=== PATIENT | male | born 1990 | race Two or more races ===

== ENCOUNTER 2023-11-16 02:02 | Inpatient (IN) | payer MEDICAID, OTHER ==
[~2023-11-16] VITALS: Ht 167.6 cm; Wt 76.8 kg
[2023-11-16] MEDS ORDERED: ceFAZolin 2 GM/D5W50ml 50 ML IV ONE (02:15)
[2023-11-16] MEDS: TETANUS-DIPTH-ACEL PERTUSSIS 0.5ML SYR Tdap IM ONE (02:22)
[2023-11-16] MEDS: MORPHINE SULFATE 4 MG/ML SYR/VIAL IV ONE (02:23)
[2023-11-16] MEDS: SODIUM CHLORIDE 0.9% 1,000 ML IV ONE (02:24)
[2023-11-16] MEDS: ONDANSETRON HCL 4 MG/2 ML VIAL IV ONE (02:24)
[2023-11-16] MEDS: IOHEXOL 350 MG/ML 100ML IJ ONE (02:29)
[2023-11-16 02:43] LABS: Basophils # (auto) 0.1 10 ^3/uL (0-0.2); Basophils % (auto) 0.4 % (0.0-2.0); Eosinophils # (auto) 0.1 10 ^3/uL (0-0.8); Eosinophils % (auto) 0.6 % (0.0-7.0); Hematocrit 39.6 % (41.0-53.0); Hemoglobin 13.5 g/dL (13.5-17.5); Lymphocytes % (auto) 25.6 % (10.0-50.0); Mean Corpuscular Hgb Conc. 34.1 g/dL (32.0-36.0); Mean Corpuscular Volume 82.1 fL (80.0-100.0); Monocytes # (auto) 1.2 10 ^3/uL (0-1.3); Monocytes % (auto) 7.9 % (0.0-12.0); Neutrophils # (auto) 10.3 10 ^3/uL (1.6-8.6); Neutrophils % (auto) 65.5 % (37.0-80.0); Nucleated Red Blood Cells % 0.1 %; Red Blood Cells 4.83 10^6/uL (4.5-5.90); Red Cell Distribution Width 15.6 % (11.8-14.3); White Blood Cell 15.7 10^3/uL (4.4-10.8)
[2023-11-16 02:46] LABS: Chloride 100 mmol/L (98-107); Potassium 3.4 mmol/L (3.5-5.1); Sodium 135 mmol/L (136-145)
[2023-11-16 02:47] LABS: Anion Gap 18 (5-15); Calcium 8.8 mg/dL (8.7-10.4); Carbon Dioxide 17 mmol/L (20-30)
[2023-11-16 02:52] LABS: BUN/Creatinine Ratio 13.4 (10.0-20.0); Blood Urea Nitrogen 15 mg/dL (9-23); Glucose 197 mg/dL (74-106)
[2023-11-16 02:57] VITALS: PULSE 103; RESP 14; O2SAT 97
[2023-11-16 03:20] LABS: INR 0.96 (0.9-1.15); Prothrombin Time 10.2 sec (9.3-11.8)
[2023-11-16 04:07] LABS: Urine Bacteria None Seen /hpf (None Seen); Urine WBC None Seen /hpf (0 - 3)
[2023-11-16 04:20] LABS: Amphetamine Screen, Urine Pos (NEGATIVE); Barbiturate Scree,Urine Neg (NEGATIVE); Benzodiazephine Screen, Urine Neg (NEGATIVE); Cocaine Screen, Urine Neg (NEGATIVE); Opiate Scree,Urine Neg (NEGATIVE)
[2023-11-16 04:21] LABS: Cannabinoid Screen, Urine Pos (NEGATIVE); Phencyclidine Screen, Urine Neg (NEGATIVE)
[2023-11-16 04:24] LABS: Urine Blood Negative /uL (Negative); Urine Clarity Clear (Clear); Urine Color Light-Yellow (Yellow); Urine Protein, UAD Negative (Negative); Urine Specific Gravity 1.029 (1.001-1.035); Urine Urobilinogen Normal (Negative)
[2023-11-16] MEDS: ceFAZolin 1GM/50ML 50 ML IV ONE ×2 (05:09→06:05)
[2023-11-16] MEDS: HYDROmorphone HCL 2 MG/ML VL/or syr IV ONE (06:04)
[2023-11-16 07:55] VITALS: PULSE 73; RESP 12; O2SAT 96
[2023-11-16] MEDS ORDERED: HYDROmorphone HCL 2 MG/ML VL/or syr IV PRN (08:15)
[2023-11-16] MEDS ORDERED: ACETAMINOPHEN 325 MG TAB PO PRN (09:15)
[2023-11-16] MEDS ORDERED: DEXTROSE (50%) 50ML SYRG IV PRN (09:15)
[2023-11-16] MEDS ORDERED: ONDANSETRON HCL 4 MG/2 ML VIAL IV PRN (09:15)
[2023-11-16] MEDS: HYDROmorphone HCL 2 MG/ML VL/or syr IV PRN (09:40)
[2023-11-16] MEDS ORDERED: VANCOMYCIN PER PHARMACY 0 MG IV SCH (09:45)
[2023-11-16] MEDS: PANTOPRAZOLE 40 MG/10 ML VIAL INJ IV SCH (10:46)
[2023-11-16] MEDS: PIPERACILLIN-TAZOB 3.375GM 100 ML IV ONE (10:47)
[2023-11-16] MEDS: LACTATED RINGER'S 1,000 ML IV ONE (11:23)
[2023-11-16] MEDS: ACCU-CHEK COMFORT CURVE STRIP VI SCH (11:49)
[2023-11-16] MEDS: InsuLIN REG 1unit/0.01ml Soln (100units/ml) SC SCH (11:49)
[2023-11-16] MEDS: VANCOMYCIN 1GM/200ML 200 ML IV ONE (12:55)
[2023-11-16] MEDS: PIPERACILLIN-TAZOB 3.375GM 100 ML IV SCH (14:00)
[2023-11-16] MEDS: SODIUM CHLOR 0.9% PF (SALINE LOCK) 10ML VIAL/SYR IV SCH (14:00)
[2023-11-16] MEDS ORDERED: PIPERACILLIN-TAZOB 3.375GM 100 ML IV SCH (14:00)
[2023-11-16 15:11] VITALS: O2SAT 97
[2023-11-16 15:58] VITALS: BP 120/69; PULSE 69; RESP 16; TEMP 97.9; O2SAT 99
[2023-11-16 20:00] VITALS: PULSE 80; RESP 17
[2023-11-16 22:00] VITALS: BP 113/67; PULSE 87; RESP 17; TEMP 98.9; O2SAT 95
[2023-11-17] VITALS (7 sets, daily range): BP systolic 114–131; BP diastolic 58–67; PULSE 67–89; RESP 17–20; TEMP 98.1–99.4; O2SAT 94–98
[2023-11-17] MEDS: VANCOMYCIN 1GM/200ML 200 ML IV SCH (01:52)
[2023-11-17] MEDS: HYDROcodone-ACET 5/325MG TAB PO PRN (04:14)
[2023-11-17 07:10] LABS: Basophils # (auto) 0 10 ^3/uL (0-0.2); Basophils % (auto) 0.3 % (0.0-2.0); Eosinophils # (auto) 0.1 10 ^3/uL (0-0.8); Eosinophils % (auto) 0.7 % (0.0-7.0); Hematocrit 37.8 % (41.0-53.0); Hemoglobin 12.8 g/dL (13.5-17.5); Lymphocytes # (auto) 2.8 10 ^3/uL (0.4-5.4); Lymphocytes % (auto) 26.4 % (10.0-50.0); Mean Corpuscular Hemoglobin 27.8 pg (28.0-32.0); Mean Corpuscular Hgb Conc. 33.9 g/dL (32.0-36.0); Mean Corpuscular Volume 81.9 fL (80.0-100.0); Monocytes % (auto) 9.4 % (0.0-12.0); Neutrophils # (auto) 6.6 10 ^3/uL (1.6-8.6); Neutrophils % (auto) 63.2 % (37.0-80.0); Nucleated Red Blood Cells % 0.1 %; Red Blood Cells 4.61 10^6/uL (4.5-5.90); Red Cell Distribution Width 15.5 % (11.8-14.3); White Blood Cell 10.5 10^3/uL (4.4-10.8)
[2023-11-17 13:27] LABS: Basophils # (auto) 0.1 10 ^3/uL (0-0.2); Basophils % (auto) 0.5 % (0.0-2.0); Eosinophils # (auto) 0.1 10 ^3/uL (0-0.8); Eosinophils % (auto) 0.9 % (0.0-7.0); Hemoglobin 12.3 g/dL (13.5-17.5); Lymphocytes # (auto) 3.2 10 ^3/uL (0.4-5.4); Lymphocytes % (auto) 31.8 % (10.0-50.0); Mean Corpuscular Hemoglobin 28.1 pg (28.0-32.0); Mean Corpuscular Hgb Conc. 34.1 g/dL (32.0-36.0); Mean Corpuscular Volume 82.5 fL (80.0-100.0); Monocytes # (auto) 0.9 10 ^3/uL (0-1.3); Neutrophils # (auto) 5.8 10 ^3/uL (1.6-8.6); Neutrophils % (auto) 57.8 % (37.0-80.0); Nucleated Red Blood Cells % 0.1 %; Red Blood Cells 4.36 10^6/uL (4.5-5.90); Red Cell Distribution Width 15.9 % (11.8-14.3); White Blood Cell 10.1 10^3/uL (4.4-10.8)
[2023-11-18 01:20] VITALS: BP 116/60; PULSE 75; RESP 18; TEMP 98; O2SAT 97
[2023-11-18 05:00] VITALS: BP 109/66; PULSE 72; RESP 18; TEMP 98.6; O2SAT 96
[2023-11-18 08:00] VITALS: PULSE 85; RESP 19
[2023-11-18] MEDS ORDERED: CLIN1CAP70 PO (08:52)
[2023-11-18] MEDS ORDERED: HYDR-4902 PO (08:52)
[2023-11-18 09:00] VITALS: BP 125/76; PULSE 75; RESP 18; TEMP 97.6; O2SAT 97
[2023-11-18] MEDS: VANCOMYCIN 1GM/200ML 200 ML IV SCH (11:37)
[2023-11-18 11:50] VITALS: BP 125/68; PULSE 82; RESP 20; TEMP 98.6; O2SAT 98
[2023-11-18 13:00] VITALS: BP 124/70; PULSE 84; RESP 19; TEMP 99.2; O2SAT 98
== END 2023-11-18 14:00 | disposition home or self-care (01) | DRG 351 ==
LOC: EEVIPCON 02:02 → ER 02:02 → OVERFLOW 09:12 → CENTRAL 14:11
PROVIDERS: ADMIT Internal Medicine; ATTEND Family Medicine
DX: S71.131A Puncture wound without foreign body, right thigh, initial encounter (principal); T79.7XXA Traumatic subcutaneous emphysema, initial encounter; D72.829 Elevated white blood cell count, unspecified; F15.10 Other stimulant abuse, uncomplicated; F12.10 Cannabis abuse, uncomplicated; W34.09XA Accidental discharge from other specified firearms, initial encounter; Y93.89 Activity, other specified; Y92.89 Other specified places as the place of occurrence of the external cause; Y99.8 Other external cause status; Z71.51 Drug abuse counseling and surveillance of drug abuser
CPT/HCPCS: 36415; 71045; 73706; 80048; 80202; 80307; 81001; 82565; 82962; 83605; 85025; 85610; 86850; 86900; 86901; 90471; 90715; 96361; 96365; 96366; 96367; 96375; 99291; G0378; J2405; J2470; J2543